=== PATIENT | male | born 1955 | race Caucasian/White ===

== ENCOUNTER 2016-10-30 17:58 | Emergency (ER) | payer MEDICAID ==
[~2016-10-30] VITALS: Ht 182.9 cm; Wt 90.7 kg
--- NOTE | 2016-10-30 18:00 | NUR ---
PRESENTS SELF TO ED FOR LOWER BACK PAIN, SHARP, 10/10 SINCE LAST NIGHT. PATIENT WALKS WITH FRONT WHEEL WALKER. VSS
--- NOTE | 2016-10-30 19:08 | NUR ---
RECEIVED REPORT FROM NELIDA DEL CASTILLO FOR NEW
--- NOTE | 2016-10-30 19:53 | NUR ---
CALLED KRISTY, FRIEND, AT [phone], TO COME BUCKLE COVERER PT
--- NOTE | 2016-10-30 20:24 | NUR ---
pt ambulatory with a steady gait with walker, accompanied by walker. Patient discharged to home in stable condition. Written and verbal after care instructions given. Patient verbalizes understanding of instruction.
--- NOTE | 2016-10-30 20:25 | NUR ---
PT LEFT WITHOUT D/C PAPERS.
[2016-10-30 20:26] VITALS: BP 148/78
== END 2016-10-30 20:28 | disposition home or self-care (01) ==
LOC: ER 18:16
DX: M54.5 Low back pain (principal); I10 Essential (primary) hypertension; F17.200 Nicotine dependence, unspecified, uncomplicated
CPT/HCPCS: 72100-TC; A4606; Z7610

== ENCOUNTER 2017-10-03 11:01 | Emergency (ER) | payer MEDICAID, OTHER ==
[~2017-10-03] VITALS: Ht 167.6 cm; Wt 74.8 kg
[2017-10-03 11:13] VITALS: BP 134/89
--- NOTE | 2017-10-03 11:40 | NUR ---
PROVIDED PT WITH CLEAN TOWELS AND SOAP TO CLEAN HIMSELF WITH REQUESTED.
== END 2017-10-03 13:02 | disposition home or self-care (01) ==
LOC: ER 11:03
DX: S79.811A Other specified injuries of right hip, initial encounter (principal); F10.129 Alcohol abuse with intoxication, unspecified; I10 Essential (primary) hypertension; F17.200 Nicotine dependence, unspecified, uncomplicated; W18.39XA Other fall on same level, initial encounter; Y93.89 Activity, other specified; Y92.89 Other specified places as the place of occurrence of the external cause; Y99.8 Other external cause status
CPT/HCPCS: A4606; Z7610

== ENCOUNTER 2018-06-10 21:05 | Emergency (ER) | payer OTHER ==
[~2018-06-10] VITALS: Ht 170.2 cm; Wt 81.6 kg
--- NOTE | 2018-06-11 06:35 | NUR ---
Patient discharged to home in stable condition. Written and verbal after care instructions given. Patient verbalizes understanding of instruction. PT AMBULATED OUT WITH STEADY GAIT NOTED
[2018-06-11 07:00] VITALS: BP 112/75
== END 2018-06-11 07:01 | disposition home or self-care (01) ==
LOC: ER 21:08
DX: F10.129 Alcohol abuse with intoxication, unspecified (principal); I10 Essential (primary) hypertension; F17.200 Nicotine dependence, unspecified, uncomplicated; Z59.0 Homelessness; Y90.9 Presence of alcohol in blood, level not specified
CPT/HCPCS: 82962-TC

== ENCOUNTER 2019-03-08 03:10 | Emergency (ER) | payer OTHER ==
[~2019-03-08] VITALS: Ht 170.2 cm; Wt 81.6 kg
--- NOTE | 2019-03-08 05:07 | NUR ---
Patient is resting comfortably in bed with eyes closed. Easily aroused. VSS
[2019-03-08 07:30] VITALS: BP 111/59
--- NOTE | 2019-03-08 07:59 | NUR ---
Pt asleep-pending discharge
--- NOTE | 2019-03-08 08:28 | NUR ---
BREAKFAST TRAY PROVIDED, TOLERATED PO WELL.
--- NOTE | 2019-03-08 09:40 | NUR ---
Pt AAO x3, back to baseline. Able to get out of bed - BRP Gait even and steady. Tolerated Diet. Ate 100% Refusing placement and opts to go back to previous living condition ([facility]) . [facility]. Appropriately clothed. Resources provided and transportation card given. Homeless protocol initiated and completed. Chemical Plant Worker-Apryl notified Discharged to previous living condition. ACI given-verbalized understanding states "sorry for being an asshole last night"
== END 2019-03-08 09:54 | disposition home or self-care (01) ==
LOC: ER 03:10
DX: S02.40EA Zygomatic fracture, right side, initial encounter for closed fracture (principal); S00.81XA Abrasion of other part of head, initial encounter; F10.129 Alcohol abuse with intoxication, unspecified; I10 Essential (primary) hypertension; F17.200 Nicotine dependence, unspecified, uncomplicated; R51 Headache; Y90.9 Presence of alcohol in blood, level not specified; Z59.0 Homelessness; X58.XXXA Exposure to other specified factors, initial encounter; Y93.89 Activity, other specified; Y92.89 Other specified places as the place of occurrence of the external cause; Y99.8 Other external cause status
CPT/HCPCS: 70450-TC; 70486-TC

== ENCOUNTER 2019-03-15 18:38 | Emergency (ER) | payer OTHER ==
--- NOTE | 2019-03-15 18:40 | NUR ---
PT BIBRA. C/O ALCOHOL INTOXICATION. PER RA PT DRANK ABOUT 1/3 BOTTLE OF VODKA. PT PLACED ON MONITOR AND PULSE OX. NO ACUTE DISTRESS NOTED. PT SLEEPING
[2019-03-15 19:27] LABS: BASOPHILS # (AUTO) 0.2 /CMM (0.0-0.2); BASOPHILS % (AUTO) 1.4 % (0.0-2.0); HEMATOCRIT 36 % (39-51); HEMOGLOBIN 11.8 g/dL (13.5-17.5); LYMPHOCYTES # (AUTO) 1.6 /CMM (0.8-4.8); LYMPHOCYTES % (AUTO) 12.7 % (20.0-44.0); MEAN CORPUSCULAR HGB CONC 33 g/dl (31.0-36.0); MEAN CORPUSCULAR VOLUME 107 fL (80-96); MONOCYTES % (AUTO) 8.5 % (2.0-12.0); NEUTROPHILS # (AUTO) 5.9 /CMM (1.8-8.9); PLATELET COUNT (AUTO) 307 /CMM (150-450); RED BLOOD CELL COUNT(AUTO) 3.38 MIL/uL (4.5-6.0); WHITE BLOOD COUNT (AUTO) 12.4 K/uL (4.3-11.0)
--- NOTE | 2019-03-15 19:36 | NUR ---
URINE COLLECTED AND SENT TO LAB
[2019-03-15 19:48] LABS: EOSINOPHILS % (AUTO) 29.4 % (0.0-6.0)
[2019-03-15 19:48] LABS: APPEARANCE,URINE Clear (CLEAR); BILIRUBIN,URINE Negative (NEGATIVE); BLOOD, URINE Negative Ery/uL (NEGATIVE); COLOR,URINE Yellow (YELLOW); KETONES,URINE Negative (NEGATIVE); LEUKOCYTE ESTERASE ,URINE Negative (NEGATIVE); NITRITE, URINE Negative (NEGATIVE); PH,URINE 5.5 (5.0-8.0); PROTEIN,URINE Negative (NEGATIVE); UGLUCOSE Negative (NEGATIVE); UROBILINOGEN,URINE 0.2 EU/dL (0.2)
[2019-03-15 19:57] LABS: ACETAMINOPHEN < 10 ug/ml (10-30); ALANINE AMINOTRANSFERASE 22 U/L (12-78); ALBUMIN 2.6 g/dL (3.4-5.0); ALCOHOL, BLOOD 420 mg/dL (0-0); ALKALINE PHOSPHATASE 154 U/L (46-116); ASPARTATE AMINOTRANSFERASE 26 U/L (15-37); BILIRUBIN,DIRECT 0.1 mg/dL (0.0-0.2); BILIRUBIN,TOTAL 0.3 mg/dL (0.2-1.0); CALCIUM, SERUM 8.8 mg/dL (8.5-10.1); CARBON DIOXIDE 24 mmol/L (21-32); CHLORIDE 104 mmol/L (98-107); CREATININE 0.5 mg/dL (0.6-1.3); GLUCOSE 79 mg/dL (74-106); POTASSIUM 3.1 mmol/L (3.5-5.1); SALICYLATE 1.4 mg/dL (2.8-20.0); SODIUM SERUM 141 mmol/L (136-145); TOTAL PROTEIN, SERUM 7.2 g/dL (6.4-8.2); UREA NITROGEN, BLOOD 8 mg/dL (7-18)
--- NOTE | 2019-03-15 20:49 | NUR ---
PROVIDED THE PATIENT CLOTHES AND BLANKETS. PT IN BED COMFORTABLE. VSS.
[2019-03-15 21:04] LABS: EOSINOPHILS % (MANUAL) 30 % (0-4); LYMPHOCYTES % (MANUAL) 10 % (16-48); MONOCYTES % (MANUAL) 10 % (0-11.0); NEUTROPHILS % (MANUAL) 50 (42-76)
--- NOTE | 2019-03-15 21:34 | NUR ---
PT RESTING COMFORTABLY. JOSE DAVIS.
--- NOTE | 2019-03-15 22:55 | NUR ---
PT SLEEPING. EASILY AWAKEN. NO ACUTE DISTRESS NOTED.
--- NOTE | 2019-03-16 00:21 | NUR ---
PT RESTING. EASILY AROUSED. VSS
--- NOTE | 2019-03-16 00:35 | NUR ---
SPOKE TO PT. PT VERBALIZED "I FEEL BETTER"
--- NOTE | 2019-03-16 01:40 | NUR ---
Patient is resting comfortably in bed with eyes closed. Easily aroused. VSS
[2019-03-16] MEDS ORDERED: POTASSIUM CHLORIDE 20 MEQ TAB.PRT.SR PO ONE ×2 (02:00→02:08)
--- NOTE | 2019-03-16 02:12 | NUR ---
PT ALERT. ASKED WHERE HE IS AND STATED "I'M SUCH AN A-HOLE FOR BEING HERE AGAIN."
--- NOTE | 2019-03-16 03:09 | NUR ---
Patient is resting comfortably in bed with eyes closed. Easily aroused. VSS.
--- NOTE | 2019-03-16 06:50 | NUR ---
ORDERED A REGULAR DIET BREAKFAST FOR THE PT.
[2019-03-16 09:21] VITALS: BP 140/71
--- NOTE | 2019-03-16 09:23 | NUR ---
Patient given written and verbal discharge instructions. Patient verbalizes understanding of instructions. Patient is ambulatory with steady gait. Refuses offer of half-way placement. Patient given list of available shelters in surrounding area. Walker provided, new clothes and food. Patient refused tap card
--- NOTE | 2019-03-16 10:33 | NUR ---
Pt. was offered senior care placement and tap card to get to senior care grain picker location, however, pt. declined. Patient was provided with a list of winter shelters, new clothes, food and a walker. Pt. signed homeless waiver form.
== END 2019-03-16 09:22 | disposition home or self-care (01) ==
LOC: ER 18:39
DX: F10.129 Alcohol abuse with intoxication, unspecified (principal); I10 Essential (primary) hypertension; F17.200 Nicotine dependence, unspecified, uncomplicated; Y90.8 Blood alcohol level of 240 mg/100 ml or more; Z59.0 Homelessness
CPT/HCPCS: 36415; 80048; 80076; 80305; 80307; 80329; 81001; 85025; 99283; G0480; 81000-TC

== ENCOUNTER 2019-03-18 21:02 | Emergency (ER) | payer OTHER ==
[~2019-03-18] VITALS: Ht 177.8 cm; Wt 85.3 kg
--- NOTE | 2019-03-18 21:24 | NUR ---
URINE COLLECTED AND SENT TO LAB
--- NOTE | 2019-03-18 21:27 | NUR ---
PT AAOX4. PT BIBRA C/O ETOH. PER RA PT DRANK VODKA. RR EVEN AND UNLABORED. NO ACUTE DISTRESS NOTED. PT PLACED IN GOWN. BELONGINGS COLLECTED.
--- NOTE | 2019-03-18 22:15 | NUR ---
Patient is resting comfortably in bed with eyes closed. Easily aroused. VSS.
--- NOTE | 2019-03-18 23:26 | NUR ---
pt resting comfortably. easily aroused.
--- NOTE | 2019-03-18 23:52 | NUR ---
PT PROVIDED ORANGE JUICE
--- NOTE | 2019-03-19 01:25 | NUR ---
PT RESTING COMFORTABLY. EASILY AROUSED.
--- NOTE | 2019-03-19 03:15 | NUR ---
Patient discharged to home in stable condition. Written and verbal after care instructions given. Patient verbalizes understanding of instruction. Pt ambulatory with a steady gait.
[2019-03-19 03:19] VITALS: BP 124/64
== END 2019-03-19 03:52 | disposition home or self-care (01) ==
LOC: ER 21:06
DX: F10.129 Alcohol abuse with intoxication, unspecified (principal); I10 Essential (primary) hypertension; F17.200 Nicotine dependence, unspecified, uncomplicated; Y90.9 Presence of alcohol in blood, level not specified; Z59.0 Homelessness
CPT/HCPCS: 82962-TC

== ENCOUNTER 2019-03-22 19:58 | Emergency (ER) | payer OTHER ==
[~2019-03-22] VITALS: Ht 177.8 cm; Wt 81.6 kg
--- NOTE | 2019-03-22 20:07 | NUR ---
[address], +ETOH. Vodka bottle found in bag. No acute distress noted. pts clothes are wet.
--- NOTE | 2019-03-22 20:33 | NUR ---
pt palced in gown. Belongings placed in a locked. pt was carrying a bottle of alcohol.
--- NOTE | 2019-03-22 21:50 | NUR ---
Patient is resting comfortably in bed with eyes closed. Easily aroused. VSS.
--- NOTE | 2019-03-22 23:48 | NUR ---
PT IS RESTING WITH EYES CLOSED. EASILY AROUSED.
--- NOTE | 2019-03-23 00:29 | NUR ---
PT RESTING NO ACUTE DISTRESS
--- NOTE | 2019-03-23 02:22 | NUR ---
Patient is resting comfortably in bed. Easily aroused. VSS.
--- NOTE | 2019-03-23 03:29 | NUR ---
PT SLEEPING. VSS.
--- NOTE | 2019-03-23 08:40 | NUR ---
FOOD TRAY PROVIDED
[2019-03-23 08:48] VITALS: BP 131/88
--- NOTE | 2019-03-23 08:48 | NUR ---
Patient given written and verbal discharge instructions. Patient verbalizes understanding of instructions. Patient is ambulatory with steady gait. Refuses offer of alf placement. Patient given list of available shelters in surrounding area.
== END 2019-03-23 08:49 | disposition home or self-care (01) ==
LOC: ER 20:00
DX: F10.129 Alcohol abuse with intoxication, unspecified (principal); I10 Essential (primary) hypertension; F17.200 Nicotine dependence, unspecified, uncomplicated; Z59.0 Homelessness; Y90.9 Presence of alcohol in blood, level not specified

== ENCOUNTER 2019-03-23 18:40 | Emergency (ER) | payer OTHER ==
[~2019-03-23] VITALS: Ht 177.8 cm; Wt 81.6 kg
--- NOTE | 2019-03-23 18:50 | NUR ---
PT AAOX4. BIBRA FOUND DRINKING VODAK IN THE STREETS. +ETOH. RR EVEN AND UNLABORED. PT PLACED IN GOWN AND GIVEN BLANKETS. BELONGININGS PLACED BESIDE THE PATIENT IN A BAG. NO ACUTE DISTRESS NOTED.
--- NOTE | 2019-03-23 19:03 | NUR ---
PT PLACED ON MONITOR AND PULSE OX. WATCHING TV.
--- NOTE | 2019-03-23 20:02 | NUR ---
Patient is asleep. vss.
--- NOTE | 2019-03-23 20:46 | NUR ---
PT RESTING COMFORTABLY. VSS.
--- NOTE | 2019-03-23 22:05 | NUR ---
PATIENT IS ASLEEP. BLANKETS PROVIDED.
--- NOTE | 2019-03-23 23:53 | NUR ---
PATIENT IS ASLEEP. VSS.
--- NOTE | 2019-03-24 01:19 | NUR ---
PT RESTING COMFORTABLY. EASILY AROUSED.
[2019-03-24 10:28] VITALS: BP 129/84
--- NOTE | 2019-03-24 10:28 | NUR ---
Patient given written and verbal discharge instructions. Patient verbalizes understanding of instructions. Patient is ambulatory with steady gait. Refuses offer of penitentiary placement. Patient given list of available shelters in surrounding area.
== END 2019-03-24 10:29 | disposition home or self-care (01) ==
LOC: ER 18:42
DX: F10.129 Alcohol abuse with intoxication, unspecified (principal); I10 Essential (primary) hypertension; F17.200 Nicotine dependence, unspecified, uncomplicated; Y90.9 Presence of alcohol in blood, level not specified; Z59.0 Homelessness

== ENCOUNTER 2019-03-26 01:28 | Inpatient (IN) | payer OTHER ==
[~2019-03-26] VITALS: Ht 177.8 cm; Wt 77.1 kg
[2019-03-26] VITALS (24 sets, daily range): BP systolic 91–155; BP diastolic 56–98
--- NOTE | 2019-03-26 01:37 | NUR ---
PT AAOX4. [id number] FROM STRE[address] +ETOH. PLACED ON MONITOR AND PULSE OX.
--- NOTE | 2019-03-26 01:38 | NUR ---
PT LEFT EYE IS SWOLLEN. PT REPORTS FALLING AND HITTING HIS HEAD BUT DOES NOT REMEMBER WHEN. PLACED ON MONITOR AND PULSE OX. UPON ASSESSMENT NO NEURO DEFICIT, PERRLA (R EYE)
--- NOTE | 2019-03-26 01:49 | NUR ---
PT BROUGHT TO CT
--- NOTE | 2019-03-26 02:28 | NUR ---
Patient is resting comfortably in bed. Easily aroused. VSS.
--- NOTE | 2019-03-26 02:38 | NUR ---
pt placed in a gown, belongings on the side.
[2019-03-26 03:03] LABS: BASOPHILS % (AUTO) 0.7 % (0.0-2.0); EOSINOPHILS % (AUTO) 2.1 % (0.0-6.0); HEMATOCRIT 38 % (39-51); HEMOGLOBIN 12.6 g/dL (13.5-17.5); LYMPHOCYTES # (AUTO) 1.1 /CMM (0.8-4.8); LYMPHOCYTES % (AUTO) 18.7 % (20.0-44.0); MEAN CORPUSCULAR HGB CONC 34 g/dl (31.0-36.0); MEAN CORPUSCULAR VOLUME 105 fL (80-96); MONOCYTES # (AUTO) 0.4 /CMM (0.1-1.30); MONOCYTES % (AUTO) 6.9 % (2.0-12.0); NEUTROPHILS # (AUTO) 4.2 /CMM (1.8-8.9); NEUTROPHILS % (AUTO) 71.6 % (43.0-81.0); PLATELET COUNT (AUTO) 298 /CMM (150-450); RED BLOOD CELL COUNT(AUTO) 3.58 MIL/uL (4.5-6.0); WHITE BLOOD COUNT (AUTO) 5.9 K/uL (4.3-11.0)
[2019-03-26 03:12] LABS: CALCIUM, SERUM 8.6 mg/dL (8.5-10.1); CREATININE 0.6 mg/dL (0.6-1.3); POTASSIUM 3.9 mmol/L (3.5-5.1)
--- NOTE | 2019-03-26 03:17 | NUR ---
PT WAS ABLE TO OPEN BOTH HIS EYES. NO NEURO DEFICIT, PERRLA.
[2019-03-26 03:18] LABS: ALBUMIN 2.9 g/dL (3.4-5.0); BILIRUBIN,DIRECT 0.1 mg/dL (0.0-0.2); BILIRUBIN,TOTAL 0.3 mg/dL (0.2-1.0); TOTAL PROTEIN, SERUM 7.2 g/dL (6.4-8.2)
--- NOTE | 2019-03-26 04:18 | NUR ---
REPORT GIVEN TO SHARON KRAUSE
[2019-03-26] MEDS ORDERED: ONDANSETRON HCL/PF 4 MG/2 ML VIAL IVP PRN (04:30)
[2019-03-26] MEDS ORDERED: MAG HYDROX/AL HYDROX/SIMETH 30 ML UDC PO PRN (04:30)
[2019-03-26] MEDS ORDERED: Z GUARD REMEDY 2 OZ OINT TP PRN (04:30)
[2019-03-26] MEDS ORDERED: MAGNESIUM HYDROXIDE 30 ML UDC PO PRN (04:30)
[2019-03-26] MEDS ORDERED: ACETAMINOPHEN 325 MG TABLET PO PRN (04:30)
--- NOTE | 2019-03-26 04:45 | NUR ---
MENTAL HEALTH PROGRAM SPECIALIST NOTES ADMITTED A 63 Y/O MALE A/OX3 VERBALLY RESPONSIVE ABLE TO MAKE NEEDS KNOWN , ABLE TO FOLLOW COMMAND.ADMITTED WITH SUBDURAL HEMATOMA . NKDA, WITH HX OF HTN AND ETOH, FULL CODE ADMISSION ROUTINE CARE RENDERED ADMISSION VERIFICATION OF ORDER DONE WITH DR MOTT , ON NPO EXCEPT MEDS STATUS , PTS TEMPERATURE OF 95 , NIKKI HUGGER APPLIED ORDERED , WITH IV ACCESS ON LAC AND RAC BOTH G#20 INTACT AND PATENT IVF OS 1/2 NS AT 100CC/HR INFUSING WELL.V/S STABLE AFEBRILE NO SOB NO DISTRESS NOTED ON SR WITH PAC ON THE MONITOR.ROOM AIR SATING 97-100% PTS IS HOMELESS NEED ASSISTANCE BY DIE MAINTENANCE TECHNICIAN.ALL NEEDS ATTENDED TOO CALL LIGHT WITHIN REACH ,BED ON LOW SITE AND LOCKED FOR SAFETY. . KEPT PTS CLEAN DRY AND COMFORTABLE.WILL ENDORSE TO RN DAY SHIFT FOR CONTINUITY OF CARE.
[2019-03-26] MEDS ORDERED: LORAZEPAM INJ 2 MG/ML VIAL IV PRN ×2 (05:00→09:00)
[2019-03-26] MEDS: IV 1/2NS 1000 ML 1,000 ML IV SCH ×2 (05:07→16:48)
--- NOTE | 2019-03-26 06:44 | NUR ---
DIALYSIS CLINICAL MANAGER NOTES NUERO CHECK DONE WITH NO DEFICIT , TEMP RECHECK AT THIS TIME IS 97.8 PTS CONTINUE ON NIKKI HUGGER.KEPT PTS COMFORTABLE.
--- NOTE | 2019-03-26 07:30 | NUR ---
CLERICAL SUPERVISOR INITIAL NOTE RECEIVED PATIENT, DROWSY, AROUSABLE. NO S/S OF PAIN OR DISCOMFORT. ALERT AND ORIENTED. REQUESTING FOR WATER. RESPIRATIONS EVEN AND UNLABORED, ON ROOM AIR. ON TELE MONITOR SINUS RHYTHM. NOTED WITH LEFT EYE SHUT CLOSED. SWOLLEN, UNABLE TO OPEN. SKIN WARM AND DRY TO TOUCH. HOB ELEVATED. SIDE RAILS UP AND LOCKED. BED KEPT AT LOWEST POSITION. WILL CONTINUE TO MONITOR.
--- NOTE | 2019-03-26 07:53 | NUR ---
WOUND CARE CONSULT: PT PRESENTS WITH DRY ABRASIONS TO FACE WITH SWELLING AND REDNESS TO LEFT EYE(VERY SWOLLEN), RT KNEE ABRASION AND LEFT KNEE DRY ABRASION, PRESENT ON ADMISSION. DEFER TO MD FOR FACIAL SWELLING. RECOMMENDATIONS MADE FOR SKIN PROTECTION AND WOUND CARE OF RT KNEE. DISCUSSED WITH NURSING STAFF. WILL SEE HUMERA. IN AGREEMENT WITH PLAN OF CARE. Addendum: 03/26/19 at 0755 by TRISTON TUCKER WNDNU Amended: Links added.
--- NOTE | 2019-03-26 08:35 | NUR ---
SENIOR CONTROLLER NOTE SEEN AND EXAMINED BY DR. MEJIAS
--- NOTE | 2019-03-26 08:40 | NUR ---
ENT CONSULTANT NOTE SEEN AND EXAMINED BY DR MALONEY, PER DR. MALONEY PATIENT CAN EAT IF PATIENT CT IS OK. WILL CONTINUE TO MONITOR.
--- NOTE | 2019-03-26 10:00 | NUR ---
MACHINE ADJUSTER HELPER NOTE CLARIFIED WITH KERZUMA IF PATIENT CAN TAKE PO MEDICATIONS. PER MAGALIE DO BEDSIDE SWALLOW EVAL AND START CARDIAC DIET IF PASSED.
--- NOTE | 2019-03-26 10:15 | NUR ---
PER DR. BELLAMY FOR ANA IF REPEAT CT HEAD IS STABLE.
[2019-03-26] MEDS: LEVETIRACETAM (500MG) 500 MG in IV NS 0.9% 100 ML IV SCH ×2 (10:30→20:19)
[2019-03-26] MEDS: THIAMINE HCL 100 MG TABLET PO SCH (10:30)
[2019-03-26] MEDS: FOLIC ACID 1 MG TABLET PO SCH (10:30)
[2019-03-26] MEDS: MULTIVITAMINS,THERAGRAN 1 UDTAB TABLET PO SCH (10:30)
--- NOTE | 2019-03-26 12:26 | NUR ---
Social service consult was requested by Dr Lindy Virgen MD for homelessness. Pt is a 63 year old male who was admitted to [facility] for subdural hemorrhage. Pt was laying down in his bed during assessment with eyes closed. Pt is alert and oriented x 3 (self, place, situation). Pt states he has been homeless for 11 years. SW offered pt retirement referrals but pt refused. SW inquired about pts housing plans after discharge and pt states I am going back to [place]. SW asked if pt has family or friends in [place] and pt responded no. SW attempted to continue assessment with pt but pt presented with difficulties communicating with SW due to his current condition. SW offered pt homeless retirement referrals, and pt accepted stating sure why not. JAQUAN provided pt with the following referrals: [facility] [[place] [facility]]; pickling machine operator address: [address] [place] [address], [facility]: [address] [place] [address], and [facility]: [address] [address]. JAQUAN also provided pt with the following housing and health services referrals: [facility] [address] [place] [address] [address]; , [facility] [address] [place] [address]; , and [facility] [address] [place] [address]; . JAQUAN provided pt the following substance abuse treatment program referrals: [facility] [address] [place] [address]; , and [facility] [address] [facility] [place] [address]; . [facility] Homeless Resources Directory and health and mental health clinic referrals were also provided. Pt will sign the homeless waiver at discharge. Pt will require a TAP card upon discharge. No other services needed at this time. mosaic worker gave report to Helen KRAUSE. SW is available if needed If patient stabilizes over the weekend he can be referred to homeless retirement pickling machine operator on [address] [place] [address].
--- NOTE | 2019-03-26 17:21 | NUR ---
NICU RN NOTE PER DR MAGALIE HUERTA FOR PATIENT TO BE IN TELEMETRY, SEIZURE PRECAUTIONS, NEURO CHECK Q4 AND MONITOR FOR WITHDRAWALS
--- NOTE | 2019-03-26 17:27 | NUR ---
COMPLEX COMMERCIAL LITIGATION PARALEGAL NOTE PATIENT TRANSFERRED VIA ACLS PROTOCOL, NO DISTRESS NOTED. ALL BELONGINGS WITH PATIENT. PATIENT TRANSFERRED TO [facility], REPORT GIVEN TO RN RAY.
--- NOTE | 2019-03-26 17:28 | NUR ---
RN NOTE RECEIVED BEDSIDE REPORT FROM NELIDA ODEN. PATIENT CAME IN VIA HOSPITAL BED FROM ICU. ON ROOM AIR, NO COMPLAINS OF ANY PAIN NOR SOB AT THIS TIME. ALERT AND ORIENTEDX3. ON TELE MONITOR, SR. HAS FACIAL ABRASIONS D/T FALL. HAS A LEFT AC #20 AND RIGHT AC #20 WITH HALF NS AT 100 ML/HR. BED LOCKED AND IN LOWEST POSITION. CALL LIGHT WITHIN REACH. WILL CONTINUE TO MONITOR
--- NOTE | 2019-03-26 18:52 | NUR ---
RN CLOSING NOTE PATIENT IN BED, AWAKE AND ALERT. CAME FROM ICU. PATIENT ATE HIS DINNER TRAY HERE IN THE UNIT. ON TELE, SR. HAS A RIGHT AC #20, AND LEFT AC #20 WITH HALF NS AT 100 ML/HR PER ORDER. NO MEDS GIVEN DURING MY CARE. ALL NEEDS MET. NO COMPLAINS OF ANY PAIN NOR SOB. BED LOCKED AND IN LOWEST POSITION. CALL LIGHT WITHIN REACH. WILL ENDORSE TO NOC SHIFT FOR NEW
--- NOTE | 2019-03-26 19:15 | NUR ---
RN OPENING NOTES: PATIENT IN BED, ASLEEP, BUT EASILY AROUSABLE. NO SOB. NO PAIN AT THIS TIME. (R) AC #20 RUNNING 1/2 NS AT 100 MLS/HR, TOLERATING WELL. (L) AC #20 SL. ALL IV SITES INTACT, PATENT, AND FLUSHING WELL. SAFETY PRECAUTIONS IMPLEMENTED. BED LOCKED AND IN LOWEST POSITION. SIDE RAILS X2 UP. CALL LIGHT PLACED WITHIN REACH. WILL CONT. TO MONITOR.
[2019-03-27] VITALS: BP 148/80
[2019-03-27] MEDS: IV 1/2NS 1000 ML 1,000 ML IV SCH ×3 (00:31→22:24)
--- NOTE | 2019-03-27 02:50 | NUR ---
RN NOTE: OFFERED TO CHANGE BED WITH NEW LINENS AND PROVIDE AM CARE. PATIENT REFUSED, OFFERED 3X, RISKS AND BENEFITS EXPLAINED. PATIENT STATES HE DOES NOT WANT TO BE TOUCHED AT THIS TIME.
[2019-03-27 04:00] VITALS: BP 154/80
[2019-03-27 06:48] LABS: BASOPHILS # (AUTO) 0.1 /CMM (0.0-0.2); BASOPHILS % (AUTO) 0.7 % (0.0-2.0); EOSINOPHILS % (AUTO) 0.7 % (0.0-6.0); HEMATOCRIT 35 % (39-51); HEMOGLOBIN 11.6 g/dL (13.5-17.5); LYMPHOCYTES # (AUTO) 1.1 /CMM (0.8-4.8); LYMPHOCYTES % (AUTO) 12.8 % (20.0-44.0); MEAN CORPUSCULAR HGB CONC 33 g/dl (31.0-36.0); MEAN CORPUSCULAR VOLUME 105 fL (80-96); MONOCYTES # (AUTO) 0.7 /CMM (0.1-1.30); MONOCYTES % (AUTO) 8.5 % (2.0-12.0); NEUTROPHILS # (AUTO) 6.7 /CMM (1.8-8.9); NEUTROPHILS % (AUTO) 77.3 % (43.0-81.0); PLATELET COUNT (AUTO) 201 /CMM (150-450); RED BLOOD CELL COUNT(AUTO) 3.33 MIL/uL (4.5-6.0); WHITE BLOOD COUNT (AUTO) 8.6 K/uL (4.3-11.0)
[2019-03-27 06:50] LABS: ALBUMIN 2.7 g/dL (3.4-5.0); BILIRUBIN,DIRECT 0.2 mg/dL (0.0-0.2); BILIRUBIN,TOTAL 0.7 mg/dL (0.2-1.0); CALCIUM, SERUM 8.6 mg/dL (8.5-10.1); CREATININE 0.5 mg/dL (0.6-1.3); MAGNESIUM 1.3 mg/dL (1.8-2.4); POTASSIUM 3.5 mmol/L (3.5-5.1); TOTAL PROTEIN, SERUM 6.7 g/dL (6.4-8.2)
--- NOTE | 2019-03-27 07:05 | NUR ---
RN CLOSING NOTES: PATIENT IN BED, ASLEEP, BUT EASILY AROUSABLE. NO SOB. NO PAIN AT THIS TIME. SAFETY PRECAUTIONS IMPLEMENTED. BED LOCKED AND IN LOWEST POSITION. SIDE RAILS X2 UP. CALL LIGHT PLACED WITHIN REACH. ENDORSED TO AM SHIFT NURSE FOR CONTINUITY OF CARE.
--- NOTE | 2019-03-27 07:10 | NUR ---
RN INITIAL NOTES RECEIVED PT AWAKE, A/OX4. ON ROOM AIR. NO RESPIRATORY DISTRESS NOTED. NO SOB NOTED. HOB ELEVATED, DENIES ANY PAIN. IV LINES IN PLACE. IVF INFUSING. PT CONTINENT. CALL LIGHT WITHIN REACH. PT COMFORTABLE. WILL MONITOR
[2019-03-27 08:00] VITALS: BP_SYST 154; BP_DIAS 8; BP_DIAS 80
[2019-03-27] MEDS: LEVETIRACETAM (500MG) 500 MG in IV NS 0.9% 100 ML IV SCH ×2 (08:25→20:48)
[2019-03-27] MEDS: MULTIVITAMINS,THERAGRAN 1 UDTAB TABLET PO SCH (08:25)
[2019-03-27] MEDS: FOLIC ACID 1 MG TABLET PO SCH (08:25)
[2019-03-27] MEDS: THIAMINE HCL 100 MG TABLET PO SCH (08:25)
--- NOTE | 2019-03-27 11:00 | NUR ---
RN NOTES SEEN AND EXAMINED BY DR MEJIAS. PT A/O, ON ROOM AIR. AWARE OF LAB VALUES. MAGNESIUM 1.3, HAS REPLACEMENT ORDER. WILL CONTINUE TO MONITOR
[2019-03-27] MEDS: Magnesium 1GM/D5W 100ML PREMIX 100 ML IV SCH ×2 (11:32→12:33)
[2019-03-27 16:00] VITALS: BP_SYST 153; BP_SYST 163; BP_DIAS 76
[2019-03-27] MEDS: CHLORDIAZEPOXIDE HCL 25 MG CAPSULE PO SCH (18:34)
--- NOTE | 2019-03-27 18:36 | NUR ---
RN CLOSING NOTES NO SIGNIFICANT CHANGE NOTED. PT REMAINS A/O. NO RESPIRATORY DISTRESS NOTED. DENIES ANY PAIN. IVF INFUSING. PT CONTINENT. KEPT CLEAN AND DRY. KEPT COMFORTABLE. ALL NEEDS ATTENDED AND MET. CALL LIGHT WITHIN REACH. WILL ENDORSE FOR CONTINUITY OF CARE.
--- NOTE | 2019-03-27 19:10 | NUR ---
CHANGE OF SHIFT REPORT Patient in bed, tolerating RA denies shortness of breath. IVF infusing. Angry behavior during hygiene care, absorbent pad changed, coccyx blanchable redness. Skin precaution, education provided, declined education per patient he's leaving tomorrow and wants to sleep and does not want to be disturb. Fall precaution maintained.
[2019-03-27 20:00] VITALS: BP 140/83
--- NOTE | 2019-03-27 20:10 | NUR ---
RN NOTE RECEIVED PT ALERT AND ORIENTED IN BED WITHOUT SIGNS OF ACUTE DISTRESS. DENIES PAIN OR DISCOMFORT. CURRENTLY ON ROOM AIR WITHOUT SOB NOTED. PT REFUSING TO BE CHANGED OR HAVE LINENS CHANGED. BED IN LOW POSITION. CALL LIGHT WITHIN REACH. WILL MONITOR.
--- NOTE | 2019-03-27 20:10 | NUR ---
ENDORSED TO NELIDA GEE FOR CONTINUITY OF CARE.
[2019-03-27 20:39] VITALS: BP 140/83
[2019-03-28 04:25] VITALS: BP 124/79
--- NOTE | 2019-03-28 06:18 | NUR ---
END OF SHIFT REPORT Patient in bed, non productive dry cough, tolerating RA, denies shortness of breath. IVF infusing, good appetite. Patient is uncooperative with hygiene, angry and irritable behavior during hygiene care, declined education. Skin/Fall precaution maintained. CM/SW following for placement.
[2019-03-28 06:54] LABS: BASOPHILS # (AUTO) 0.1 /CMM (0.0-0.2); BASOPHILS % (AUTO) 0.7 % (0.0-2.0); EOSINOPHILS % (AUTO) 2.6 % (0.0-6.0); HEMATOCRIT 39 % (39-51); HEMOGLOBIN 12.7 g/dL (13.5-17.5); LYMPHOCYTES # (AUTO) 1.1 /CMM (0.8-4.8); MEAN CORPUSCULAR HGB CONC 33 g/dl (31.0-36.0); MEAN CORPUSCULAR VOLUME 105 fL (80-96); MONOCYTES # (AUTO) 0.8 /CMM (0.1-1.30); MONOCYTES % (AUTO) 9.1 % (2.0-12.0); NEUTROPHILS # (AUTO) 6.3 /CMM (1.8-8.9); NEUTROPHILS % (AUTO) 74.6 % (43.0-81.0); PLATELET COUNT (AUTO) 208 /CMM (150-450); RED BLOOD CELL COUNT(AUTO) 3.69 MIL/uL (4.5-6.0); WHITE BLOOD COUNT (AUTO) 8.5 K/uL (4.3-11.0)
[2019-03-28 07:03] LABS: CREATININE 0.6 mg/dL (0.6-1.3); MAGNESIUM 1.7 mg/dL (1.8-2.4); PHOSPHORUS 3.5 mg/dL (2.5-4.9); POTASSIUM 3.3 mmol/L (3.5-5.1)
--- NOTE | 2019-03-28 07:33 | NUR ---
RN OPENING NOTES RECEIVED PATIENT SLEEPING IN BED COMFORTABLY, EASILY AROUSED. HE IS AOX3, VERBAL, AND AMBULATORY. PT STATES THAT HE IS GOING TO LEAVE TODAY AFTER BREAKFAST. HE IS ON RA, TOLERATING WELL, NO S/SX OF RESP DISTRESS OR SOB. MULTIPLE ABRASIONS FOUND THROUGHOUT THE BODY, KNEES, FOREHEAD, AND NOSE. HE IS ON CARDIAC DIET. LAC 20 G IS PATENT AND INTACT, INFUSING 1/2 NS AT 100 ML/HR. SAFETY MEASURES HAVE BEEN IMPLEMENTED, CALL LIGHT IS WITHIN REACH, BED IS IN LOWEST AND LOCKED POSITION, SIDE RAILS UP X2, WILL CONTINUE TO MONITOR FOR ANY CHANGES.
[2019-03-28 08:00] VITALS: BP 150/100
[2019-03-28] MEDS ORDERED: LEVETIRACETAM (250 MG) 250 MG TABLET PO SCH (09:00)
[2019-03-28] MEDS: FOLIC ACID 1 MG TABLET PO SCH (09:25)
[2019-03-28] MEDS: CHLORDIAZEPOXIDE HCL 25 MG CAPSULE PO SCH (09:25)
[2019-03-28] MEDS: THIAMINE HCL 100 MG TABLET PO SCH (09:25)
[2019-03-28] MEDS: MULTIVITAMINS,THERAGRAN 1 UDTAB TABLET PO SCH (09:25)
[2019-03-28] MEDS: Magnesium 1GM/D5W 100ML PREMIX 100 ML IV SCH ×2 (10:09→11:17)
[2019-03-28] MEDS ORDERED: POTASSIUM CHLORIDE 20 MEQ TAB.PRT.SR PO SCH (10:30)
--- NOTE | 2019-03-28 11:14 | NUR ---
RN NOTES PT IS BEING NON-COMPLIANT WITH THE URINAL. INSTEAD, HE IS USING AN EMESIS BAG HIS PREFERRED METHOD OF VOIDING. HIS LINENS ARE SATURATED IN URINE AND PT IS CURRENTLY REFUSING TO HAVE THE CHANGED "MAYBE LATER". WILL TRY AGAIN AND CONTINUE TO MONITOR
--- NOTE | 2019-03-28 15:56 | NUR ---
PATIENT HAS LEFT AMA. WENT INSIDE PATIENTS ROOM TO FIND HIM COVERED IN HIS BLOOD BECAUSE HE GOT UPSET AND PULLED OUT HIS IV. PATIENT HAD BEEN NON-COMPLIANT THROUGHOUT HIS HOSPITAL STAY. EXPLAINED THE RISKS OF LEAVING AMA, PATIENT VERBALIZED UNDERSTANDING. HE ALSO REFUSED TO TAKE PICTURES OF HIS WOUNDS. PTS REMAINING IV SITE WAS REMOVED, BLOOD WAS CLEANED OFF OF EXTREMITIES, BELONGINGS LISTS WAS CHECKED OFF, [employer] TAP CARD WAS ALSO GIVEN. PATIENT REFUSED OUR SERVICES TO HELP HIM FIND A PLACE TO GO. DR. MEJIAS MADE AWARE OF PATIENTS LEAVING.
== END 2019-03-28 14:10 | disposition left against medical advice (07) | DRG 55 ==
LOC: ER 01:29 → ICU 04:01 → TELE-TD 17:19 → MEDSG1 03-27 08:50
PROVIDERS: ADMIT Internal Medicine; ATTEND Student in an Organized Health Care Education/Training Program
DX: S06.5X0A Traumatic subdural hemorrhage without loss of consciousness, initial encounter (principal); G92 Toxic encephalopathy; E87.0 Hyperosmolality and hypernatremia; R56.9 Unspecified convulsions; W18.30XA Fall on same level, unspecified, initial encounter; Y92.89 Other specified places as the place of occurrence of the external cause; F10.129 Alcohol abuse with intoxication, unspecified; Y90.8 Blood alcohol level of 240 mg/100 ml or more; E86.1 Hypovolemia; D53.9 Nutritional anemia, unspecified; I10 Essential (primary) hypertension; Z59.0 Homelessness; E53.8 Deficiency of other specified B group vitamins; K70.10 Alcoholic hepatitis without ascites
CPT/HCPCS: 36415; 70450-TC; 70486-TC; 80048-TC; 80076-TC; 82962-TC; 83735-TC; 84100-TC; 85025-TC; 85730-TC; 87081-TC; G0378; G0480; J1953; J3475; J3490; J7030